=== PATIENT | male | born 1980 | race Caucasian/White ===

== ENCOUNTER 2019-01-20 14:48 | Emergency (ER) | payer OTHER ==
--- NOTE | 2019-01-20 15:34 | EDM.PDOC ---
ED HPI GENERAL MEDICAL PROBLEM - General Chief Complaint: Skin Complaint Stated Complaint: CYST ON BACK Time Seen by Provider: 01/20/19 15:10 Source of Information: Reports: Patient History Limitations: Reports: No Limitations - History of Present Illness INITIAL COMMENTS - FREE TEXT/NARRATIVE: HISTORY AND PHYSICAL: History of present illness: Patient is a 38-year-old male presents to the ED today with concern for an infection on his back. Patient states he's had a cyst in the middle of his back for many years. Patient states he had noticed a cyst was starting to drain in the shower so had his girlfriend: It. Patient states since then he's noticed increasing pain and pressure of the cyst. Patient states he has an appointment in a week with Dr. Elizondo, general surgery, but feels that he cannot wait that long because it has become so painful. Patient denies any other symptoms at this time or any health history. Patient denies fever, chills, chest pain, shortness of breath, or cough. Denies headache, neck stiff ness, change in vision, syncope, or near syncope. Denies nausea, vomiting, abdominal pain, diarrhea, constipation, or dysuria. Has not noted any blood in urine or stool. Patient has been eating and drinking appropriately. Review of systems: As per history of present illness and below otherwise all systems reviewed and negative. Past medical history: As per history of present illness and as reviewed below otherwise noncontributory. Surgical history: As per history of present illness and as reviewed below otherwise noncontributory. Social history: See social history for further information Family history: As per history of present illness and as reviewed below otherwise noncontributory. Physical exam: General: Patient is alert, oriented, and in no acute distress. Patient sitting comfortably on exam table. HEENT: Atraumatic, normocephalic, pupils equal and reactive bilaterally, negative for conjunctival pallor or scleral icterus, mucous membranes moist, TMs normal bilaterally, throat clear, neck supple, nontender, trachea midline. No drooling or trismus noted. No meningeal signs. No hot potato voice noted. Lungs: Clear to auscultation, breath sounds equal bilaterally, chest nontender. Heart: S1S2, regular rate and rhythm without overt murmur Abdomen: Soft, nondistended, nontender. Negative for masses or hepatosplenomegaly. Negative for costovertebral tenderness. Pelvis: Stable nontender. Genitourinary: Deferred. Rectal: Deferred. Skin: Intact, warm, dry. No lesions or rashes noted. Extremities/musculoskeletal: Atraumatic, negative for cords or calf pain. Neurovascular unremarkable. There is a 3 cm abscess overlying the thoracic spine with surrounding erythema. No obvious step-offs, crepitus, or deformities of the complete spine. Patient has full range of motion of spine without deficit. Neuro: Awake, alert, oriented. Cranial nerves II through XII unremarkable. Cerebellum unremarkable. Motor and sensory unremarkable throughout. Exam nonfocal. Notes: Dr. Elizondo, general surgery recreation program coordinator, consult on patient. Per Dr. Elizondo, he will see patient in his clinic immediately following discharge from ED. Voices understanding and is agreeable to plan of care. Denies any further questions or concerns at this time. Diagnostics: none Therapeutics: None Impression: Skin abscess, back Plan: 1. Transfer to [facility], Dr. Elizondo Definitive disposition and diagnosis as appropriate pending reevaluation and review of above. Middle Back Pain Score (Numeric/FACES): 4 - Related Data Allergies Allergy/AdvReac Type Severity Reaction Status Date / Time No Known Allergies Allergy Verified 01/20/19 14:57 Home Meds: Home Meds . [No Known Home Meds] 01/20/19 [History] Past Medical History - Past Health History Medical/Surgical History: Denies Medical/Surgical History - Infectious Disease History Infectious Disease History: Reports: Chicken Pox Social & Family History - Family History Family Medical History: Noncontributory - Tobacco Use Smoking Status *Q: Never Smoker - Caffeine Use Caffeine Use: Reports: Coffee - Recreational Drug Use Recreational Drug Use: No ED ROS GENERAL - Review of Systems Review Of Systems: ROS reveals no pertinent complaints other than HPI. ED EXAM, SKIN/RASH Exam: See Below (see dictation) Course - Vital Signs Last Recorded V/S: Last Vital Signs Temp 36.4 C 01/20/19 14:57 Pulse 104 H 01/20/19 14:57 Resp 17 01/20/19 14:57 BP 132/105 H 01/20/19 14:57 Pulse Ox 96 01/20/19 14:57 Departure - Departure Time of Disposition: 15:33 Disposition: DC/Tfer to Other 70 Clinical Impression: Abscess of back - Discharge Information Referrals: PCP,None [Primary Care Provider] -
== END 2019-01-20 15:39 | disposition other institution (70) ==
LOC: MW.ED 14:48
DX: L02.212 Cutaneous abscess of back [any part, except buttock and flank] (principal)
CPT/HCPCS: 99282; 99283

== ENCOUNTER 2019-04-13 19:46 | Emergency (ER) | payer OTHER ==
[2019-04-13] MEDS ORDERED: Aspirin 81 MG Tab.Chew PO ONE (19:53)
--- NOTE | 2019-04-13 19:54 | EDM.PDOC ---
ED HPI GENERAL MEDICAL PROBLEM - General Chief Complaint: Cardiovascular Problem Stated Complaint: HEART PALPITATIONS Time Seen by Provider: 04/13/19 19:49 - History of Present Illness INITIAL COMMENTS - FREE TEXT/NARRATIVE: HISTORY AND PHYSICAL: History of present illness: Patient 38-year-old white male with history of hypertension for which she's been attempting management via diet and exercise he is not on medications currently he has had palpitations in the past but states that the palpitations slightly more frequent today he equivocates regarding occasional intermittent chest pain is vaguely describes no associated nausea vomiting diaphoresis or other concern he states his blood pressure was noted be elevated at home which is what really prompted his visit here he states his symptoms in the absence of an elevated blood pressure wouldn't not have prompted an evaluation or visit to the emergency room Review of systems: As per history of present illness and below otherwise all systems reviewed and negative. Past medical history: As per history of present illness and as reviewed below otherwise noncontributory. Surgical history: As per history of present illness and as reviewed below otherwise noncontributory. Social history: No reported history of drug or alcohol abuse. Family history: As per history of present illness and as reviewed below otherwise noncontributory. Physical exam: HEENT: Atraumatic, normocephalic, pupils reactive, negative for conjunctival pallor or scleral icterus, mucous membranes moist, throat clear, neck supple, nontender, trachea midline. Lungs: Clear to auscultation, breath sounds equal bilaterally, chest nontender. Heart: S1S2, regular, negative for clicks, rubs, or JVD. Abdomen: Soft, nondistended, nontender. Negative for masses or hepatosplenomegaly. Negative for costovertebral tenderness. Pelvis: Stable nontender. Genitourinary: Deferred. Rectal: Deferred. Extremities: Atraumatic, negative for cords or calf pain. Neurovascular unremarkable. Neuro: Awake, alert, oriented. Cranial nerves II through XII unremarkable. Cerebellum unremarkable. Motor and sensory unremarkable throughout. Exam nonfocal. Diagnostics: CBC CMP troponin PT/INR chest x-ray EKG TSH Therapeutics: IV O2 monitor aspirin 324 mg by mouth Impression: #1 palpitations #2 hypertension #3 atypical chest pain Definitive disposition and diagnosis as appropriate pending reevaluation and review of above. chest pain Pain Score (Numeric/FACES): 6 - Related Data Allergies Allergy/AdvReac Type Severity Reaction Status Date / Time No Known Allergies Allergy Verified 04/13/19 19:48 Home Meds: Home Meds . [No Known Home Meds] 01/20/19 [History] Past Medical History - Past Health History Medical/Surgical History: Denies Medical/Surgical History - Infectious Disease History Infectious Disease History: Reports: Chicken Pox Social & Family History - Family History Family Medical History: Noncontributory - Caffeine Use Caffeine Use: Reports: Coffee ED ROS GENERAL - Review of Systems Review Of Systems: ROS reveals no pertinent complaints other than HPI. ED EXAM, GENERAL - Physical Exam Exam: See Below (See dictation) Course - Vital Signs Text/Narrative:: I discussed with patient initiating antihypertensive medication at this point patient is against that he would prefer to follow-up reevaluating continue diet exercise Last Recorded V/S: Last Vital Signs Temp 36.8 C 04/13/19 19:48 Pulse 79 04/13/19 20:15 Resp 15 04/13/19 20:15 BP 168/109 H 04/13/19 20:15 Pulse Ox 97 04/13/19 20:15 - Orders/Labs/Meds Orders: Active Orders 24 hr Category Date Time Status Cardiac Monitoring [RC] . DIRECTED Care 04/13/19 19:52 Active EKG Documentation Completion [RC] STAT Care 04/13/19 19:52 Active Labs: Laboratory Tests 04/13/19 04/13/19 04/13/19 Range/Units 19:50 19:50 19:50 WBC 7.78 (4.0-11.0) K/uL RBC 5.14 (4.50-5.90) M/uL Hgb 15.2 (13.0-17.0) g/dL Hct 43.7 (38.0-50.0) % MCV 85.0 (80.0-98.0) fL MCH 29.6 (27.0-32.0) pg MCHC 34.8 (31.0-37.0) g/dL RDW Std Deviation 39.8 (28.0-62.0) fl RDW Coeff of Alexey 13 (11.0-15.0) % Plt Count 179 (150-400) K/uL MPV 11.80 (7.40-12.00) fL Neut % (Auto) 55.4 (48.0-80.0) % Lymph % (Auto) 33.9 (16.0-40.0) % [place] % (Auto) 7.1 (0.0-15.0) % Eos % (Auto) 3.3 (0.0-7.0) % Baso % (Auto) 0.3 (0.0-1.5) % Neut # (Auto) 4.3 (1.4-5.7) K/uL Lymph # (Auto) 2.6 H (0.6-2.4) K/uL [place] # (Auto) 0.6 (0.0-0.8) K/uL Eos # (Auto) 0.3 (0.0-0.7) K/uL Baso # (Auto) 0.0 (0.0-0.1) K/uL Nucleated RBC % 0.0 /100WBC Nucleated RBCs # 0 K/uL INR 1.01 Sodium 140 (136-148) mmol/L Potassium 3.8 (3.5-5.1) mmol/L Chloride 102 (98-107) mmol/L Carbon Dioxide 28.6 (21.0-32.0) mmol/L BUN 10 (7.0-18.0) mg/dL Creatinine 1.3 (0.8-1.3) mg/dL Est Cr Clr Drug Dosing 88.78 mL/min Estimated GFR (MDRD) > 60.0 ml/min Glucose 118 H (74-106) mg/dL Calcium 9.5 (8.5-10.1) mg/dL Troponin I < 0.050 (0.000-0.056) ng/mL TSH 3rd Generation 3.46 (0.36-3.74) uIU/mL Meds: Medications Discontinued Medications Generic Name Dose Route Start Last Admin Trade Name Freq PRN Reason Stop Dose Admin Aspirin 324 mg 04/13/19 19:53 04/13/19 19:56 Aspirin PO 04/13/19 19:54 324 mg ONETIME ONE Administration Departure - Departure Time of Disposition: 22:00 Disposition: Home, Self-Care 01 Condition: Good Clinical Impression: Hypertension, Palpitations, Atypical chest pain Referrals: PCP,None [Primary Care Provider] - Forms: ED Department Discharge Additional Instructions: The following information is given to patients seen in the emergency department who are being discharged to home. This information is to outline your options for follow-up care. We provide all patients seen in our emergency department with a follow-up referral. The need for follow-up, as well as the timing and circumstances, are variable depending upon the specifics of your emergency department visit. If you don't have a primary care physician on staff, we will provide you with a referral. We always advise you to contact your personal physician following an emergency department visit to inform them of the circumstance of the visit and for follow-up with them and/or the need for any referrals to a consulting specialist. The emergency department will also refer you to a specialist when appropriate. This referral assures that you have the opportunity for followup care with a specialist. All of these measure are taken in an effort to provide you with optimal care, which includes your followup. Under all circumstances we always encourage you to contact your private physician who remains a resource for coordinating your care. When calling for followup care, please make the office aware that this follow-up is from your recent emergency room visit. If for any reason you are refused follow-up, please contact the [facility] emergency department at and asked to speak to the emergency department charge nurse. [facility] [address] [place] [id number] Follow-up primary care above monitor blood pressure as discussed return as needed as discussed - My Orders Last 24 Hours: My Active Orders 04/13/19 19:52 Cardiac Monitoring [RC] . DIRECTED EKG Documentation Completion [RC] STAT - Assessment/Plan Last 24 Hours: My Active Orders 04/13/19 19:52 Cardiac Monitoring [RC] . DIRECTED EKG Documentation Completion [RC] STAT
--- NOTE | 2019-04-13 20:21 | CR ---
INDICATION: Chest pain. TECHNIQUE: Portable AP upright chest 2000 hours. FINDINGS: The lungs are clear without pneumothorax. Normal heart size and pulmonary vascular pattern with no pleural effusions. Incidental bone islands projecting over the proximal right humerus. IMPRESSION: No acute radiographic chest finding. Dictated by Will Ramirez MD @ Apr 13 2019 8:18PM Signed by Dr. Will Rmairez @ Apr 13 2019 8:19PM
[2019-04-13 20:30] LABS: CHLORIDE,CL 102 mmol/L (98-107); SODIUM,NA 140 mmol/L (136-148)
== END 2019-04-13 22:15 | disposition home or self-care (01) ==
LOC: MW.ED 19:46
DX: I10 Essential (primary) hypertension (principal)
CPT/HCPCS: 71045; 80048; 84443; 84484; 85025; 85610; 93005; 99285; A9270; 99283

== ENCOUNTER 2020-11-18 08:50 | Emergency (ER) | payer OTHER ==
--- NOTE | 2020-11-18 09:27 | EDM.PDOC ---
ED HPI GENERAL MEDICAL PROBLEM - General Chief Complaint: Back Pain or Injury Stated Complaint: BACK INJURY Time Seen by Provider: 11/18/20 09:11 - History of Present Illness INITIAL COMMENTS - FREE TEXT/NARRATIVE: Patient otherwise well 40-year-old male. 4 days ago at the gym he was bending forward and pulling with his right arm and felt sharp pain in his right lower back. Since that time it has been consistently but worse in the morning. The next day it improved markedly throughout the day and he was able to function relatively well. However the symptoms of worsened over the last few days and so he presents. No fevers no chills no radiation down his legs no urinary or bowel incontinence no pain with coughing. No fall. Patient had a minor upper back injury sometime ago that improved with Toradol shot he has no history of chronic back pain or chronic pain medications. Again this morning the pain was quite severe and seem to radiate up his right back he says that he spent most of yesterday laying down. lower back Pain Score (Numeric/FACES): 8 - Related Data Allergies Allergy/AdvReac Type Severity Reaction Status Date / Time No Known Allergies Allergy Verified 11/18/20 09:00 Home Meds: Home Meds Fish Oil/[place]-3 Fatty Acids [Fish Oil 1,000 MG] 1 tab PO DAILY 11/18/20 [History] Ibuprofen 800 mg PO TID 5 Days #15 tablet 11/18/20 [Rx] Losartan [Cozaar] 75 mg PO DAILY 11/18/20 [History] diazePAM [Valium] 5 mg PO TID PRN 5 Days #5 tablet 11/18/20 [Rx] Past Medical History - Past Health History Medical/Surgical History: Denies Medical/Surgical History Cardiovascular History: Reports: Hypertension Respiratory History: Reports: None Gastrointestinal History: Reports: None Genitourinary History: Reports: None Musculoskeletal History: Reports: None Neurological History: Reports: None Psychiatric History: Reports: None Endocrine/Metabolic History: Reports: None Hematologic History: Reports: None Oncologic (Cancer) History: Reports: None Dermatologic History: Reports: None - Infectious Disease History Infectious Disease History: Reports: Chicken Pox Social & Family History - Family History Family Medical History: No Pertinent Family History Cardiac: Reports: Hypertension - Tobacco Use Tobacco Use Status *Q: Never Tobacco User - Caffeine Use Caffeine Use: Reports: Coffee - Recreational Drug Use Recreational Drug Use: No ED ROS GENERAL - Review of Systems Review Of Systems: See Below Free Text/Narrative/Comment: General: No fever. ENT: No sore throat. Neck: No neck stiffness. Respiratory: No shortness of breath. Cardiac: No chest pain. Gastrointestinal: No nausea, vomiting or abdominal pain. Musculoskeletal: Per HPI Neurologic: No headache. ED EXAM, GENERAL - Physical Exam Exam: See Below Free Text/Narrative:: General Appearance: No acute distress, appears comfortable HEENT: Normocephalic/atraumatic, sclera anicteric, mucous membranes moist Neck: Normal range of motion Back: No midline tenderness of the spine there is tenderness and palpable spasm of the right paraspinal muscles at the L4-S1 region, 5 out of 5 strength in the bilateral hips in abduction abduction flexion and extension as well as in the bilateral knees in flexion and extension sensation grossly intact in the bilateral lower extremities, no skin changes overlying the painful area Musculoskeletal: No edema or tenderness Neurologic: Awake, alert, no obvious deficits, moving all extremities Psychiatric: Appropriate, cooperative Course - Vital Signs Last Recorded V/S: Last Vital Signs Temp 98 F 11/18/20 09:35 Pulse 64 11/18/20 09:35 Resp 16 11/18/20 09:35 BP 142/75 H 11/18/20 09:35 Pulse Ox 100 11/18/20 09:35 - Orders/Labs/Meds Meds: Medications Discontinued Medications Generic Name Dose Route Start Last Admin Trade Name Freq PRN Reason Stop Dose Admin Ketorolac Tromethamine 30 mg 11/18/20 09:34 11/18/20 09:37 Ketorolac 30 Mg/Ml Sdv IM 11/18/20 09:35 30 mg ONETIME ONE Administration Departure - Departure Time of Disposition: : Disposition: Home, Self-Care 01 Condition: Good Clinical Impression: Low back strain - Discharge Information *PRESCRIPTION DRUG MONITORING PROGRAM REVIEWED*: Yes *COPY OF PRESCRIPTION DRUG MONITORING REPORT IN PATIENT YOLIS: No Prescriptions: Ibuprofen 800 mg PO TID 5 Days #15 tablet diazePAM [Valium] 5 mg PO TID PRN 5 Days #5 tablet PRN Reason: Muscle Spasm Instructions: Lumbosacral Strain Referrals: Rodri Jim MD [Primary Care Provider] - Forms: ED Department Discharge Additional Instructions: Your pain should get better over the next several days. You do not have any signs of injury to your spinal cord or any symptoms that suggest a problem with one of the disks in your back. For the next 5 days please take the ibuprofen every 8 hours with food. The Valium is primarily for at night as it is a muscle relaxant. If you have severe pain in the morning you can take it however it may make you sleepy and it is important that you not drive operate heavy machinery or go to work after taking it. You also cannot combine the Valium with alcohol or any other drugs. We know that inactivity delay his recovery from back injuries. Please try and get up and walk and do which you can. However, if the activity causes severe worsening of your back pain it is important that you back off and slow down. The following information is given to patients seen in the emergency department who are being discharged to home. This information is to outline your options for follow-up care. We provide all patients seen in our emergency department with a follow-up referral. The need for follow-up, as well as the timing and circumstances, are variable depending upon the specifics of your emergency department visit. If you don't have a primary care physician on staff, we will provide you with a referral. We always advise you to contact your personal physician following an emergency department visit to inform them of the circumstance of the visit and for follow-up with them and/or the need for any referrals to a consulting specialist. The emergency department will also refer you to a specialist when appropriate. This referral assures that you have the opportunity for follow-up care with a specialist. All of these measure are taken in an effort to provide you with optimal care, which includes your follow-up. Under all circumstances we always encourage you to contact your private physician who remains a resource for coordinating your care. When calling for follow-up care, please make the office aware that this follow-up is from your recent emergency room visit. If for any reason you are refused follow-up, please contact the [facility] Emergency Department at and asked to speak to the emergency department charge nurse. Sepsis Event Note (ED) - Evaluation Sepsis Screening Result: No Definite Risk - Focused Exam Vital Signs: Vital Signs Temp Pulse Resp BP Pulse Ox 11/18/20 09:35 98 F 64 16 142/75 H 100 11/18/20 08:57 96.3 F L 67 16 147/87 H 100 - Assessment/Plan Assessment:: 40-year-old male presenting with right lower back strain no radicular symptoms nothing to suggest disc pathology no signs of cord compression or cauda equina patient without fever or other suggestion for osteomyelitis or epidural abscess. Patient ambulates well with a steady gait. Given a shot of Toradol schedule ibuprofen and Valium at night for muscle spasms return precautions discussed and understood.
[2020-11-18] MEDS ORDERED: Ketorolac 30 MG/ML SDV IM ONE (09:34)
== END 2020-11-18 09:35 | disposition home or self-care (01) ==
LOC: MW.ED 08:50
DX: S39.012A Strain of muscle, fascia and tendon of lower back, initial encounter (principal); I10 Essential (primary) hypertension; Z79.899 Other long term (current) drug therapy; X50.0XXA Overexertion from strenuous movement or load, initial encounter; Y92.89 Other specified places as the place of occurrence of the external cause
CPT/HCPCS: 96372; 99283; J1885; 99282